=== PATIENT | male | born 1990 | race Caucasian/White ===

== ENCOUNTER 2017-03-05 19:22 | Inpatient (IN) | payer OTHER ==
[~2017-03-05] VITALS: Ht 182.9 cm; Wt 74.6 kg
[~2017-03-05 19:22] MED LIST: COL100 PO; FLA250 PO; PRI20 PO; ZOF4 PO; ZOFI IV
[2017-03-05 20:25] LABS: BASOPHIL % 0.5 % (0-2); PLATELET COUNT 253 x10^3mcL (130-400); RED CELL DISTRIBUTION WIDTH 13.2 % (11.5-14.5)
[2017-03-05 20:40] LABS: CALCIUM 9.4 mg/dL (8.5-10.1); CARBON DIOXIDE 25.4 mmol/L (21-32); CREATININE SERUM 1.7 mg/dL (0.7-1.3)
[2017-03-05 20:43] LABS: ALBUMIN 5.1 g/dL (3.4-5.0); TOTAL PROTEIN, SERUM 8.7 g/dL (6.4-8.2)
[2017-03-05 20:44] LABS: POTASSIUM SERUM 2.6 mmol/L (3.5-5.1)
[2017-03-05 22:33] VITALS: BP 133/98
[2017-03-05 23:05] VITALS: BP 133/98
[2017-03-06 00:20] LABS: T3 TOTAL 1.18 ng/mL
[2017-03-06 00:37] LABS: CHOLESTEROL/HDL RATIO 2.8; PHOSPHOROUS 3.3 mg/dL (2.5-4.9)
[2017-03-06 00:40] LABS: FREE T4 2.06 ng/dL (0.76-1.46)
[2017-03-06 00:44] LABS: FREE THYROXINE INDEX 6.3 ug/dL (1.4-4.5); T4(THYROXINE) 15.4 ug/dL (4.7-13.3)
[2017-03-06 02:25] LABS: microscopic required? NO
[2017-03-06 02:59] LABS: UA SPECIFIC GRAVITY 1.015 (1.005-1.035); urine erythrocyte NEGATIVE (NEGATIVE)
[2017-03-06 03:15] LABS: AMPHETAMINE QUAL UR NONE DETECTED (NEG <=1000)
[2017-03-06 05:49] VITALS: BP 143/81
[2017-03-06 06:51] LABS: BASOPHIL % 0.3 % (0-2); PLATELET COUNT 178 x10^3mcL (130-400); RED CELL DISTRIBUTION WIDTH 13.5 % (11.5-14.5)
[2017-03-06 07:51] LABS: CALCIUM 7.8 mg/dL (8.5-10.1); CARBON DIOXIDE 28.1 mmol/L (21-32); CHLORIDE SERUM 103 mmol/L (98-107); CREATININE SERUM 1.1 mg/dL (0.7-1.3); GFR1 > 60 mL/min; GLUCOSE SERUM 127 mg/dL (74-106); POTASSIUM SERUM 3.4 mmol/L (3.5-5.1); SODIUM SERUM 135 mmol/L (136-145)
[2017-03-06 10:31] VITALS: BP 118/70
[2017-03-06 13:50] VITALS: BP 115/61
[2017-03-06 15:48] VITALS: Ht 182.9 cm; Wt 74.6 kg
[2017-03-06 18:01] VITALS: BP 137/82
[2017-03-06 22:03] VITALS: BP 129/79
[2017-03-07 06:10] VITALS: BP 122/80
[2017-03-07 06:32] LABS: BASOPHIL % 0.5 % (0-2); PLATELET COUNT 166 x10^3mcL (130-400); RED CELL DISTRIBUTION WIDTH 13.4 % (11.5-14.5)
[2017-03-07 06:44] LABS: CALCIUM 8.2 mg/dL (8.5-10.1); CARBON DIOXIDE 27.3 mmol/L (21-32); CHLORIDE SERUM 106 mmol/L (98-107); GFR1 > 60 mL/min; GLUCOSE SERUM 84 mg/dL (74-106); POTASSIUM SERUM 3.3 mmol/L (3.5-5.1); SODIUM SERUM 141 mmol/L (136-145)
[2017-03-07 10:00] VITALS: BP 120/71
[2017-03-07 14:45] VITALS: BP 124/79
[2017-03-07] MEDS ORDERED: ZOF4 PO (17:07)
== END 2017-03-07 18:16 | disposition home or self-care (01) | DRG 775 ==
LOC: ED 19:22 → DU 21:33
PROVIDERS: Emergency Medicine; Family Medicine; ADMIT Student in an Organized Health Care Education/Training Program
DX: F12.129 Cannabis abuse with intoxication, unspecified (principal); F10.20 Alcohol dependence, uncomplicated; N17.0 Acute kidney failure with tubular necrosis; E86.0 Dehydration; E87.6 Hypokalemia; E11.65 Type 2 diabetes mellitus with hyperglycemia; F15.10 Other stimulant abuse, uncomplicated; E87.1 Hypo-osmolality and hyponatremia; F41.9 Anxiety disorder, unspecified; G47.00 Insomnia, unspecified; Z53.29 Procedure and treatment not carried out because of patient's decision for other reasons; D72.829 Elevated white blood cell count, unspecified; E87.8 Other disorders of electrolyte and fluid balance, not elsewhere classified; Y90.9 Presence of alcohol in blood, level not specified; F43.23 Adjustment disorder with mixed anxiety and depressed mood; Z83.3 Family history of diabetes mellitus; Z82.49 Family history of ischemic heart disease and other diseases of the circulatory system
CPT/HCPCS: 83880; 84439; G0480; J2405; J3411; J3475; J3480; J3490; J7030; Q0092

== ENCOUNTER 2017-06-08 18:43 | Inpatient (IN) | payer OTHER ==
[~2017-06-08] VITALS: Ht 182.9 cm; Wt 102.1 kg
--- NOTE | 2017-06-08 19:39 | NUR ---
REC'D A 26/M IN RM 8 WITH C/O DERRICK UPPER QUADRANT PAIN X 5DAYS. PT REPORTS CONSPITATION AND NAUSEA. HX OF ETOH AND METH ABUSE. PER PT, "DOCTORS HAVE TOLD ME IN THE PAST, I HAVE PANCREATITIS". PT AAOX4, RESP E/U. HAD 1 EPISODE OF VOMITING AT BEDSIDE. ON CM. FRIEND AT BEDSIDE. CALL LIGHT WITHIN REACH, WILL CONTINUE TO MONITOR.
[2017-06-08 20:32] LABS: BASOPHIL % 0.3 % (0-2); PLATELET COUNT 305 x10^3mcL (130-400); RED CELL DISTRIBUTION WIDTH 13.3 % (11.5-14.5)
[2017-06-08 20:36] LABS: BILIRUBIN TOTAL 1.61 mg/dL (0.20-1.00); CALCIUM 9.3 mg/dL (8.5-10.1); CARBON DIOXIDE 21.7 mmol/L (21-32); POTASSIUM SERUM 3.1 mmol/L (3.5-5.1)
[2017-06-08 20:39] LABS: ALBUMIN 5.5 g/dL (3.4-5.0); CREATININE SERUM 4.1 mg/dL (0.7-1.3); TOTAL PROTEIN, SERUM 9.4 g/dL (6.4-8.2)
--- NOTE | 2017-06-08 20:43 | NUR ---
PT ACTIVELY VOMITING AT BEDSIDE.
--- NOTE | 2017-06-08 20:47 | NUR ---
DR JANG AT BEDSIDE DISCUSSING POC WITH THE PT.
--- NOTE | 2017-06-08 21:25 | NUR ---
REPORT GIVEN TO MARY MEEKS TO ASSUME CARE OF THE PT.
--- NOTE | 2017-06-08 21:40 | NUR ---
RECEIVED PT FROM ED VIA [facility], CAME IN DUE TO VOMITING SINCE MONDAY AND ABDOMINAL PAIN SINCE MONDAY. AAOX4. C/O DIZZINESS. NO SOB NOTED. DENIES CHEST PAIN/PRESSURE. C/O MILD NAUSEA AND STATED THAT HE VOMITED X4 TODAY. LAST BM WAS ON 06/03/17. BOWEL SOUNDS HYPOACTIVE. C/O 9/10 PRESSURE PAIN ON THE EPIGASTRIC AND RUQ OF THE ABDOMEN AND 7/10 DULL AND ACHING PAIN ON THE LLQ OF THE ABDOMEN. C/O RIGHT ARM CRAMPING. VOIDS. IV SITE PATENT AND INTACT. SIDE RAILS UPX2. CALL LIGHT ON REACH. PRIMARY NURSE CONSTANTINO AND MEDICAL STUDENT AT BEDSIDE.
[2017-06-08 21:57] VITALS: BP 140/93
[2017-06-08 22:01] VITALS: Ht 182.9 cm; Wt 102.1 kg
--- NOTE | 2017-06-08 22:45 | NUR ---
PHENERGAN 12.5MG VIA IVP, KCL 40MEQ PO AND GI COCKTAIL PO ADMINISTERED.
--- NOTE | 2017-06-08 22:50 | NUR ---
PT OFF UNIT TO CT SCAN FOR ABD/PELVIS.
--- NOTE | 2017-06-08 23:20 | NUR ---
PT BACK FROM CT SCAN, RE-STARTED IVF WITH NS @ 100ML/HR, PT STATED THAT HE FELT MUCH BETTER AT THIS TIME, K-PAD IN PLACE.
[2017-06-09 00:37] LABS: T3 TOTAL 1.45 ng/mL
[2017-06-09 00:39] LABS: MAGNESIUM 2.2 mg/dL (1.8-2.4); PHOSPHOROUS 5.5 mg/dL (2.5-4.9)
[2017-06-09 00:50] LABS: FREE T4 1.68 ng/dL (0.76-1.46); FREE THYROXINE INDEX 6.2 ug/dL (1.4-4.5); T4(THYROXINE) 16.7 ug/dL (4.7-13.3)
[2017-06-09 03:15] LABS: microscopic required? NO
[2017-06-09 03:35] LABS: urine erythrocyte NEGATIVE (NEGATIVE)
[2017-06-09 03:40] LABS: AMPHETAMINE QUAL UR NONE DETECTED (NEG <=1000)
[2017-06-09 04:32] LABS: CALCIUM 8.5 mg/dL (8.5-10.1); CARBON DIOXIDE 24.5 mmol/L (21-32); CREATININE SERUM 2.1 mg/dL (0.7-1.3); MAGNESIUM 2.4 mg/dL (1.8-2.4); PHOSPHOROUS 4.2 mg/dL (2.5-4.9); POTASSIUM SERUM 3.6 mmol/L (3.5-5.1)
[2017-06-09 04:36] LABS: PLATELET COUNT 237 x10^3mcL (130-400); RED CELL DISTRIBUTION WIDTH 13.5 % (11.5-14.5)
[2017-06-09 04:38] LABS: BASOPHIL % 0 % (0-2)
--- NOTE | 2017-06-09 05:56 | NUR ---
PT AWAKE AND RESTING IN BED, AWAKE MOST OF NIGHT, IVF INFUSING WELL, VOIDING FREELY WITH URINAL, GAVE ONE TIME NORCO WITH GOOD RELIEF, NO DISTRESS NOTED, WILL KEEP TO MONITOR.
[2017-06-09 06:38] VITALS: BP 140/84
--- NOTE | 2017-06-09 07:10 | NUR ---
RECEIVED PATIENT SITTING UP AT EDGE OF BED A/O X4, CLEAR SPEECH, DENIES SAAVEDRA OR DIZZINESS AT THIS TIME. TELE # [address], DENIES CHEST PAIN. BREATHING EVEN UNLABBORED ON RA, DENIES SOB, NO DISTRESS NOTED. PATIENT IS AMBULATORY, NPO STATUS MAINTAINED. SKIN IS WARM CDI WITH IV TO LAC INTACT INFUSING NS AT 140 ML/HR FREE FROM REDNESS AND INFILTRATION. PATIENT CALM WITH CARE. INSTRUCTED TO CALL FOR ASSISTANCE IF NEEDED. CALL LIGHT WITHIN REACH, BED IN LOW POSITION. WILL CONTINUE TO MONITOR MAINTAIN SAFETY.
--- NOTE | 2017-06-09 08:15 | NUR ---
PATIENT SEEN AMBULATING IN THE HALLWAY, GAIT SLOW AND STEADY, NO DISTRESS NOTED. WILL MONITOR.
--- NOTE | 2017-06-09 09:40 | NUR ---
ROUNDS MADE- DR. ROLAND, RESIDENT TEAM, CHARGE NURSE AND PRIMARY NURSE AT BEDSIDE. POC REVIEWED WITH PATIENT- PATIENT CAME IN DUE TO ABDOMINAL PAIN AND DEHYDRATION, PLAN IS TO CONTINUE HYDRATION, WILL MAINTAIN NPO STATUS DUE TO ENTERITIS, ONCE PATIENTS ABD PAIN AND N/V DECREASES PATIENT WILL HAVE HIS DIET ADVANCED TOLERATED. PATIENT WILL STAY TODAY. ALL QUESTIONS AND CONCERNS ADDRESSED. WILL MONITOR.
[2017-06-09 10:33] VITALS: BP 124/82
--- NOTE | 2017-06-09 13:08 | NUR ---
PATIENT SEEN RESTING IN BED COMFORTABLY. DIET HAS BEEN ADVANCED TO CLEAR LIQUID, TOLERATED WELL, DENIES ANY N/V. ALL NEEDS ATTENDED TO. SAFETY PRECAUTIONS MAINTAINED. WILL MONITOR.
--- NOTE | 2017-06-09 13:20 | NUR ---
PATIENT NOTED WITH TEMP 101.1, TYLENOL 650 MG PO Q8H PRN GIVEN AT THIS TIME. COOLING MEASURES IN PLACE. ALL NEEDS ATTENDED TO. SAFETY PRECAUTIONS MAINTAINED. WILL MONITOR.
[2017-06-09 14:10] VITALS: BP 142/92
--- NOTE | 2017-06-09 16:10 | NUR ---
SPOKE WITH DR. RAMIREZ AND INFORMED HER PATIENT STATED THAT HE STARTED TO DRY HEAVE AND HAVE ABDOMINAL PAIN 5/10 SHORTLY AFTER EATING LUNCH (CLEAR LIQUIDS). PATIENT DENIES ANY VOMITING AND ABDOMINAL PAIN IS TOLERABLE. PATIENT IS NOW RESTING COMFORTABLY IN BED, NO DISTRESS NOTED. PER DR. RAMIREZ, WILL PLACE PATIENT BACK TO NPO STATUS TO LET HIS BOWLS REST. WILL NOTIFY PATIENT.
--- NOTE | 2017-06-09 17:09 | NUR ---
PATIENT C/O NAUSEA, STATED HE VOMITED X1, NOT WITNESSED. ZOFRAN 4 MG IVP Q4H PRN GIVEN AT THIS TIME FOR N/V. PATIENT MADE AWARE OF NPO STATUS. ALL NEEDS ATTENDED TO. SAFETY PRECAUTIONS MAINTAINED. WILL MONITOR.
[2017-06-09 17:37] VITALS: BP 130/74
--- NOTE | 2017-06-09 17:46 | NUR ---
PATIENT C/O ABD PAIN 01/07, NORCO 7.5/325 1 TAB PO Q4H PRN GIVEN AT THIS TIME. ALL NEEDS ATTENDED TO. SAFETY PRECAUTIONS MAINTAINED. WILL MONITOR.
--- NOTE | 2017-06-09 19:10 | NUR ---
PATIENT RECEIVED RESTING IN BED ALERT AND ORIENTED X 4. NO DISTRESS NOTED. PATIENT DENIES PAIN AT THIS TIME. PATIENT DENIES NAUSEA AND VOMITING AT THIS TIME. IV SITE TO LEFT AC, PATENT AND INTACT. IV FLUID INFUSING PER DOCTOR'S ORDER. BED IN LOWEST POSITION. CALL LIGHT WITHIN REACH. WILL CONTINUE TO MONITOR.
--- NOTE | 2017-06-09 19:16 | NUR ---
REPORT GIVEN TO JAYDEN HERNANDEZ, ALL QUESTIONS AND CONCERNS ADDRESSED. ALL CARES ENDORSED.
[2017-06-09 21:05] VITALS: BP 116/74
[2017-06-10 05:04] VITALS: BP 102/69
--- NOTE | 2017-06-10 05:14 | NUR ---
PT RESTED COMFORTABLY THROUGHOUT NIGHT. NO DISTRESS NOTED. NO C/O ABDOMINAL PAIN, N/V THROUGHOUT NIGHT. ALL NEEDS MET. COMFORT AND SAFETY MEASURES MAINTAINED THROUGHOUT NIGHT. WILL CONTINUE TO MONITOR.
--- NOTE | 2017-06-10 07:30 | NUR ---
RECEIVED PT. IN BED A/A/O X3. NO SOB, NO N/V NOTED. DENIES ANY PAIN AT THIS TIME. NS RUNNING AT 140 CC/HR. VIA IV H/L AT L AC. K-PAD TO ABDOMEN MAINTAINED. SCD TO BLE IN PLACE. BED IN LOW POS., CALL LIGHT WITHIN REACH. SIDE RAILS UP X3.
[2017-06-10 09:40] VITALS: BP 125/81
[2017-06-10 09:52] LABS: BASOPHIL % 0.3 % (0-2); PLATELET COUNT 181 x10^3mcL (130-400); RED CELL DISTRIBUTION WIDTH 13.6 % (11.5-14.5)
[2017-06-10 10:01] LABS: CALCIUM 8.4 mg/dL (8.5-10.1); CARBON DIOXIDE 26.9 mmol/L (21-32); CHLORIDE SERUM 102 mmol/L (98-107); CREATININE SERUM 1.1 mg/dL (0.7-1.3); GFR1 > 60 mL/min; GLUCOSE SERUM 121 mg/dL (74-106); MAGNESIUM 2.6 mg/dL (1.8-2.4); POTASSIUM SERUM 3.3 mmol/L (3.5-5.1); SODIUM SERUM 139 mmol/L (136-145)
--- NOTE | 2017-06-10 12:43 | NUR ---
DR. HERBERT, THE RESIDENTS, CHARGE NURSE, AND ATTENDING NURSE AT BEDSIDE. CAREPLAN DISCUSSED WITH PT. ALL QUESTIONS ANSWERED.
[2017-06-10 14:07] VITALS: BP 115/60
--- NOTE | 2017-06-10 16:48 | NUR ---
D/C HOME INSTRUCTIONS GIVEN TO PT. WITH VERBALIZATION OF UNDERSTANDING. IV H/L TO L AC REMOVED. PT. IS STILL AWAITING FOR HIS MOM TO COME TO PICK HIM UP.
[2017-06-10 16:53] VITALS: BP 116/72
--- NOTE | 2017-06-10 17:50 | NUR ---
PT. IS BEING DISCHARGED IN STABLE CONDITION VIA WHEELCHAIR. ALL BELONGINGS SENT HOME WITH PT. UPON DISCHARGE. ACCOMPANIED BY HIS MOTHER AT TIME OF DISCHARGE.
== END 2017-06-10 17:48 | disposition home or self-care (01) | DRG 249 ==
LOC: ED 18:43 → DU 21:01
PROVIDERS: Emergency Medicine Emergency Medical Services; ADMIT Family Medicine
DX: K52.9 Noninfective gastroenteritis and colitis, unspecified (principal); N17.0 Acute kidney failure with tubular necrosis; E87.8 Other disorders of electrolyte and fluid balance, not elsewhere classified; E87.1 Hypo-osmolality and hyponatremia; E87.6 Hypokalemia; E83.39 Other disorders of phosphorus metabolism; E86.0 Dehydration; K29.20 Alcoholic gastritis without bleeding; F12.10 Cannabis abuse, uncomplicated
CPT/HCPCS: 83880; 84439; G0480; J0696; J1100; J2405; J2550; J3490; J7030; Q0092

== ENCOUNTER 2018-06-03 17:21 | Emergency (ER) | payer OTHER ==
[~2018-06-03] VITALS: Ht 190.5 cm; Wt 79.4 kg
[2018-06-03 17:32] VITALS: Ht 190.5 cm; Wt 79.4 kg
[2018-06-03 18:43] LABS: CALCIUM 9.4 mg/dL (8.5-10.1); CARBON DIOXIDE 24.7 mmol/L (21-32); CREATININE SERUM 3.8 mg/dL (0.7-1.3); POTASSIUM SERUM 3.3 mmol/L (3.5-5.1)
[2018-06-03 18:47] LABS: BASOPHIL % 0.3 % (0-2); PLATELET COUNT 276 x10^3mcL (130-400); RED CELL DISTRIBUTION WIDTH 13.6 % (11.5-14.5)
[2018-06-03 18:48] LABS: BILIRUBIN TOTAL 1.15 mg/dL (0.20-1.00)
[2018-06-03 18:49] LABS: ALBUMIN 5.3 g/dL (3.4-5.0); TOTAL PROTEIN, SERUM 9.4 g/dL (6.4-8.2)
[2018-06-03 19:57] VITALS: BP 126/70
== END 2018-06-03 19:57 | disposition home or self-care (01) ==
LOC: ED 17:21
PROVIDERS: Emergency Medicine
DX: N17.9 Acute kidney failure, unspecified (principal)
CPT/HCPCS: J2405

== ENCOUNTER 2018-09-14 05:18 | Inpatient (IN) | payer OTHER ==
[~2018-09-14] VITALS: Ht 182.9 cm; Wt 84.0 kg
[2018-09-14 05:28] VITALS: Ht 182.9 cm; Wt 84.0 kg
[2018-09-14 06:08] LABS: BASOPHIL % 0.2 % (0-2); PLATELET COUNT 268 x10^3mcL (130-400); RED CELL DISTRIBUTION WIDTH 13.6 % (11.5-14.5)
[2018-09-14 06:26] LABS: BILIRUBIN TOTAL 1.1 mg/dL (0.20-1.00); CALCIUM 9.5 mg/dL (8.5-10.1); CARBON DIOXIDE 20.9 mmol/L (21-32)
[2018-09-14 06:27] LABS: ALBUMIN 5.3 g/dL (3.4-5.0); TOTAL PROTEIN, SERUM 9.5 g/dL (6.4-8.2)
[2018-09-14 06:29] LABS: CREATININE SERUM 5.1 mg/dL (0.7-1.3)
[2018-09-14 08:22] LABS: AMPHETAMINE QUAL UR NONE DETECTED (See below)
[2018-09-14] MEDS ORDERED: PRILOSEC OTC20 M1 PO (09:10)
[2018-09-14 09:55] VITALS: BP 129/92
[2018-09-14 10:16] VITALS: BP 137/90
[2018-09-14 10:40] LABS: PHOSPHOROUS 5.2 mg/dL (2.5-4.9)
[2018-09-14 12:00] VITALS: BP 153/96
[2018-09-14 12:04] LABS: T3 TOTAL 1.07 ng/mL
[2018-09-14 14:21] LABS: FREE T4 1.33 ng/dL (0.76-1.46)
[2018-09-14 14:25] LABS: T4(THYROXINE) 14.3 ug/dL (4.7-13.3)
[2018-09-14 17:00] VITALS: BP 128/81
[2018-09-14 20:17] VITALS: BP 121/78
[2018-09-15 05:21] VITALS: BP 143/90
[2018-09-15 05:47] LABS: BASOPHIL % 0.2 % (0-2); PLATELET COUNT 208 x10^3mcL (130-400); RED CELL DISTRIBUTION WIDTH 13.4 % (11.5-14.5)
[2018-09-15 05:52] LABS: CALCIUM 9.1 mg/dL (8.5-10.1); CARBON DIOXIDE 28.1 mmol/L (21-32); CHLORIDE SERUM 102 mmol/L (98-107); CREATININE SERUM 1.4 mg/dL (0.7-1.3); GFR1 > 60 mL/min; GLUCOSE SERUM 123 mg/dL (74-106); POTASSIUM SERUM 3.8 mmol/L (3.5-5.1); SODIUM SERUM 137 mmol/L (136-145)
[2018-09-15 05:59] LABS: MAGNESIUM 2.4 mg/dL (1.8-2.4); PHOSPHOROUS 3.5 mg/dL (2.5-4.9)
[2018-09-15 09:20] VITALS: BP 124/77
[2018-09-15 12:41] VITALS: BP 124/85
[2018-09-15 17:32] VITALS: BP 125/88
[2018-09-15 21:25] VITALS: BP 116/71
[2018-09-16 05:15] VITALS: BP 111/70
[2018-09-16 07:29] LABS: BASOPHIL % 0.4 % (0-2); PLATELET COUNT 171 x10^3mcL (130-400); RED CELL DISTRIBUTION WIDTH 13.4 % (11.5-14.5)
[2018-09-16 07:32] LABS: CALCIUM 8.9 mg/dL (8.5-10.1); CARBON DIOXIDE 27.5 mmol/L (21-32); CHLORIDE SERUM 106 mmol/L (98-107); GFR1 > 60 mL/min; GLUCOSE SERUM 104 mg/dL (74-106); POTASSIUM SERUM 3.5 mmol/L (3.5-5.1); SODIUM SERUM 142 mmol/L (136-145)
[2018-09-16] MEDS ORDERED: ZOFI SL (08:18)
[2018-09-16 09:58] VITALS: BP 152/79
[2018-09-16 11:24] VITALS: BP 152/79
== END 2018-09-16 12:21 | disposition home or self-care (01) | DRG 469 ==
LOC: ED 05:18 → MU 08:53 → DU 08:53
PROVIDERS: Emergency Medicine; Internal Medicine Nephrology; ADMIT Family Medicine
DX: N17.0 Acute kidney failure with tubular necrosis (principal); R65.10 Systemic inflammatory response syndrome (SIRS) of non-infectious origin without acute organ dysfunction; E87.8 Other disorders of electrolyte and fluid balance, not elsewhere classified; E83.39 Other disorders of phosphorus metabolism; E87.1 Hypo-osmolality and hyponatremia; E86.0 Dehydration; F12.10 Cannabis abuse, uncomplicated; F41.9 Anxiety disorder, unspecified; G47.00 Insomnia, unspecified; F10.20 Alcohol dependence, uncomplicated; I10 Essential (primary) hypertension; R73.9 Hyperglycemia, unspecified; F17.210 Nicotine dependence, cigarettes, uncomplicated; Z83.3 Family history of diabetes mellitus; Z82.49 Family history of ischemic heart disease and other diseases of the circulatory system; Z23 Encounter for immunization
CPT/HCPCS: 82962; 84439; 90658; C9113; J2270; J2405; J2543; J2765; J3010; J3490; J7030; Q0092